=== PATIENT | female | born 1990 | race Caucasian/White ===

== ENCOUNTER → 2023-07-24 | Outpatient (CLI) | payer BC ==
--- NOTE | 2023-07-24 15:10 | MM ---
Reason for Exam: Clinical finding. Baseline mammogram. Patient History: Menarche at age 10. First Full-Term at age 28. Premenopausal. Maternal grandmother had breast cancer. Mother had breast cancer at or over age 50. Last menstrual period: 07/12/2023 Prior Study Comparison: Patient's first Mammogram. Tissue Density: The breasts are heterogeneously dense, which may obscure small masses. Findings: Analyzed By CAD. Global asymmetry subareolar left breast for which further ultrasound evaluation is recommended. No suspicious microcalcification or other discrete abnormality is seen. Overall Assessment: Incomplete: need additional imaging evaluation, BI-RAD 0 Management: Diagnostic Breast Ultrasound of the left breast. Electronically signed and approved by: Melissa Knutson M.D. Radiologist
--- NOTE | 2023-07-24 15:18 | USB ---
Reason for Exam: Clinical finding. Patient History: Menarche at age 10. First Full-Term at age 28. Premenopausal. Maternal grandmother had breast cancer. Mother had breast cancer at or over age 50. Technique: Method: Targeted. Findings: The axilla of the right breast and the retroareolar of the right breast were scanned. Targeted ultrasound subareolar and periareolar left breast including the 6:00 periareolar region. Additional scanning of the axilla. No solid or cystic lesion or axillary lymphadenopathy. Overall Assessment: Probably benign, BI-RAD 3 Management: Diagnostic Mammogram of the left breast in 6 months. Further clinical management of left breast pain or any suspicious palpable areas. A clinical breast exam by your physician is recommended on an annual basis and results should be correlated with mammographic findings. This exam should not preclude additional follow-up of suspicious palpable abnormalities. Results were given to the patient verbally at the time of exam. Electronically signed and approved by: Melissa Knutson M.D. Radiologist
== END | disposition home or self-care (01) ==
LOC: RADMAMWWP 13:14
PROVIDERS: ATTEND Obstetrics & Gynecology Gynecology
DX: R92.333 Mammographic heterogeneous density, bilateral breasts (principal); N64.4 Mastodynia; Z80.3 Family history of malignant neoplasm of breast
CPT/HCPCS: 77062; 77066

== ENCOUNTER → 2024-01-24 | Outpatient (CLI) | payer BC ==
--- NOTE | 2024-01-24 10:54 | MM ---
Reason for Exam: Follow-up at short interval from prior study. Last screening mammogram was performed 6 month(s) ago. Patient History: Menarche at age 10. First Full-Term at age 28. Premenopausal. Maternal grandmother had breast cancer. Mother had breast cancer at or over age 50. Prior Study Comparison: 07/24/2023 Bilateral MG 3D diag mammo w/cad [facility], [facility]. Tissue Density: Left: The breasts are heterogeneously dense, which may obscure small masses. Findings: Analyzed By CAD. Possible global asymmetry medial subareolar left breast. The area of density remains unchanged for 6 months. Overall Assessment: Incomplete: need additional imaging evaluation, BI-RAD 0 Management: Diagnostic Breast Ultrasound of the left breast. [facility], , 01/24/2024 10:51 AM. Electronically signed and approved by: Melissa Knutson M.D. Radiologist
--- NOTE | 2024-01-24 11:29 | USB ---
Reason for Exam: Clinical finding. Patient History: Menarche at age 10. First Full-Term at age 28. Premenopausal. Maternal grandmother had breast cancer. Mother had breast cancer at or over age 50. Technique: Method: Targeted. Doppler: Color. Patient Position: RPO. Prior Study Comparison: 07/24/2023 Bilateral MG 3D diag mammo w/cad [facility], [facility]. Findings: The periareolar of the left breast, the axilla of the left breast and the retroareolar of the left breast were scanned. Targeted ultrasound subareolar and periareolar left breast including scanning of the axilla. Dense subareolar fibroglandular tissue is suggested. At the medial subareolar region there is focal ectasia with internal echoes, probably agree within a duct. Measurement of 7 x 2 mm. This can be reassessed in 6 months. Overall Assessment: Probably benign, BI-RAD 3 Management: Diagnostic Mammogram of both breasts in 6 months. Diagnostic Breast Ultrasound of the left breast in 6 months. Total one-year follow-up left breast. Annual exam of the right breast. A clinical breast exam by your physician is recommended on an annual basis and results should be correlated with mammographic findings. This exam should not preclude additional follow-up of suspicious palpable abnormalities. Results were given to the patient verbally at the time of exam. [facility], , 01/24/2024 11:08 AM. Electronically signed and approved by: Melissa Knutson M.D. Radiologist
== END | disposition home or self-care (01) ==
LOC: RADMAMWWP 10:15
PROVIDERS: ATTEND Obstetrics & Gynecology Gynecology
DX: R92.2 Inconclusive mammogram (principal); Z80.3 Family history of malignant neoplasm of breast; R92.332 Mammographic heterogeneous density, left breast
CPT/HCPCS: 77061; 77065

== ENCOUNTER → 2024-09-17 | Outpatient (CLI) | payer BC ==
--- NOTE | 2024-09-17 11:41 | MM ---
Reason for Exam: Additional evaluation requested from abnormal screening. Last mammogram was performed 1 year(s) and 1 month(s) ago. Patient History: Menarche at age 10. First Full-Term at age 28. Premenopausal. Maternal grandmother had breast cancer. Mother had breast cancer at or over age 50. Last menstrual period: 09/16/2024 Risk Values: Flakito 5 year model risk: 0.6%. NCI Lifetime model risk: 20.8%. Prior Study Comparison: 07/24/2023 Bilateral MG 3D diag mammo w/cad [facility], [facility]. 07/24/2023 Bilateral US breast limited [facility], [facility]. 01/24/2024 Left MG 3D diag mammo w/cad [facility], [facility]. Tissue Density: The breasts are heterogeneously dense, which may obscure small masses. Findings: Analyzed By CAD. Unchanged global asymmetry subareolar left breast. No significant change from prior exams. Overall Assessment: Benign, BI-RAD 2 Management: Screening Mammogram of both breasts in 1 year. SEE NOTE BELOW IN REGARDS TO THE PATIENT'S INCREASED 5 YEAR FLAKITO SCORE AND INCREASED LIFETIME RISK SCORE. Results were given to the patient verbally at the time of exam. Patient should continue monthly self-breast exams. A clinical breast exam by your physician is recommended on an annual basis. This exam should not preclude additional follow-up of suspicious palpable abnormalities. Note on Flakito scores and lifetime risk: 1. A Flakito score greater than 3% is considered moderate risk. If this is the case, consider specialist referral to assess eligibility for a risk reducing agent. 2. If overall lifetime risk for the development of breast cancer is 20% or higher, the patient may qualify for future screening with alternating mammogram and breast MRI. [facility], , 09/17/2024 11:39 AM. Electronically signed and approved by: Melissa Knutson M.D. Radiologist
== END | disposition home or self-care (01) ==
LOC: RADMAMWWP 10:57
PROVIDERS: ATTEND Obstetrics & Gynecology Gynecology
DX: R92.8 Other abnormal and inconclusive findings on diagnostic imaging of breast (principal); R92.333 Mammographic heterogeneous density, bilateral breasts; Z80.3 Family history of malignant neoplasm of breast
CPT/HCPCS: 77062; 77066